=== PATIENT | male | born 1965 | race Caucasian/White ===

== ENCOUNTER 2019-01-07 19:41 | Emergency (ER) | payer BC, MEDICAID ==
--- NOTE | 2019-01-07 20:07 | ER Document Report ---
ED Medical Screen (RME) - General Stated Complaint: SWOLLEN HANDS Time Seen by Provider: 01/07/19 20:04 Primary Care Provider: BETTINA NARVAEZ [Primary Care Provider] - Follow up as needed Mode of Arrival: Ambulatory Information source: Patient Notes: This 53-year-old male presents to the emergency department irritation to his hands. Reports they started using a new cleanser at work. 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 Denies diabetes. I have greeted and performed a rapid initial assessment of this patient. A comprehensive ED assessment and evaluation of the patient, analysis of test results and completion of the medical decision making process will be conducted by additional ED providers. Dictation of this chart was performed using voice recognition software; therefore, there may be some unintended grammatical errors. Physical Exam - Vital signs Vitals: Temp Pulse Resp BP Pulse Ox 97.9 F 79 18 174/95 H 100 01/07/19 19:45 01/07/19 19:45 01/07/19 19:45 01/07/19 19:45 01/07/19 19:45 Course - Vital Signs Vital signs: Temp Pulse Resp BP Pulse Ox 97.9 F 79 18 174/95 H 100 01/07/19 19:45 01/07/19 19:45 01/07/19 19:45 01/07/19 19:45 01/07/19 19:45 Doctor's Discharge - Discharge Referrals: BETTINA NARVAEZ [Primary Care Provider] - Follow up as needed
[2019-01-07] MEDS ORDERED: FAMOTIDINE 20 MG TABLET PO ONE (21:34)
[2019-01-07] MEDS ORDERED: DIPHENHYDRAMINE HCL 50 MG CAPSULE PO ONE (21:34)
[2019-01-07] MEDS ORDERED: PREDNISONE 20 MG TABLET PO ONE (21:34)
--- NOTE | 2019-01-07 21:35 | ER Document Report ---
ED Skin Rash/Insect Bite/Abscs - General Chief Complaint: Skin Sore(s) Stated Complaint: SWOLLEN HANDS Time Seen by Provider: 01/07/19 20:04 Primary Care Provider: BETTINA NARVAEZ [BETTINA NOLAN MD] - Follow up as needed Mode of Arrival: Ambulatory TRAVEL OUTSIDE OF THE [place] IN LAST 30 DAYS: No - HPI Notes: This is a 53-year-old gentleman who presents today with a complaint of swelling, soft, itching of his hands. 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 He also notes that they recently started using new chemicals at work and he thinks that was the cause of his symptoms. He states that he first noticed a sore sinus right hand about a week ago and now he has sores on his left hand to. He describes them as itching. He denies any fever or chills. He denies any trauma. Denies any other pulmonary symptoms. There are no obvious aggravating or relieving factors. Past Medical History - General Information source: Patient - Social History Smoking Status: Current Every Day Smoker Chew tobacco use (# tins/day): No Frequency of alcohol use: None Drug Abuse: None Family History: Reviewed & Not Pertinent Patient has suicidal ideation: No Patient has homicidal ideation: No Review of Systems - Review of Systems Cardiovascular: denies: Chest pain Gastrointestinal: denies: Abdomen distended, Abdominal pain Genitourinary: denies: Burning Skin: Lesions, Rash Neurological/Psychological: denies: Headaches -: Yes All other systems reviewed and negative Physical Exam - Vital signs Vitals: Temp Pulse Resp BP Pulse Ox 97.9 F 79 18 174/95 H 100 01/07/19 19:45 01/07/19 19:45 01/07/19 19:45 01/07/19 19:45 01/07/19 19:45 - General General appearance: Appears well, Alert - Respiratory Respiratory status: No respiratory distress Chest status: Nontender Breath sounds: Normal Chest palpation: Normal - Cardiovascular Rhythm: Regular Heart sounds: Normal auscultation Murmur: No - Extremities General upper extremity: Nontender, Normal color, Normal ROM, Normal temperature General lower extremity: Normal inspection, Nontender, Normal color, Normal ROM, Normal temperature, Normal weight bearing. No: Dayanara's sign Hand: Other - Patient has multiple lesions on the fingers of both hands. They are macular, blanching, with some skin eruption consistent with sores. There are no obvious blisters that I can see. No warmth or erythema to suggest infectious etiology. Full range of motion of both hands. There is some slight swelling. - Skin Skin Temperature: Warm Skin Moisture: Dry Skin Color: Normal Skin irregularity: Rash - Rash, sores, as described in the hand exam. Course - Re-evaluation Re-evalutation: 01/07/19 21:34 Clinical picture is consistent with allergic contact dermatitis, likely some skin irritation and even chemical meraz from the chemicals that he using at work. There is no evidence of infection. Given the fact the patient states it is itching, I will treat with antihistamines and some prednisone. 01/07/19 22:19 Patient reevaluated. Patient is doing well. He is stable for discharge. - Vital Signs Vital signs: Temp Pulse Resp BP Pulse Ox 97.9 F 79 18 174/95 H 100 01/07/19 19:45 01/07/19 19:45 01/07/19 19:45 01/07/19 19:45 01/07/19 19:45 Discharge - Discharge Clinical Impression: Allergic contact dermatitis due to chemical Condition: Good Disposition: HOME, SELF-CARE Instructions: Contact Dermatitis ([facility]) Prescriptions: Diphenhydramine HCl [Benadryl] 25 mg PO Q6 PRN #20 capsule PRN Reason: Itching Prednisone [Deltasone 20 mg Tablet] 3 tab PO DAILY 5 Days #15 tablet Famotidine [Pepcid 20 mg Tablet] 20 mg PO BID #10 tablet Referrals: [facility] [NO LOCAL MD] - Follow up as needed [facility] [NO LOCAL MD] - Follow up in 3-5 days
[2019-01-07 23:01] VITALS: BP 160/95
== END 2019-01-07 22:57 | disposition home or self-care (01) ==
LOC: ER 19:41
DX: L23.5 Allergic contact dermatitis due to other chemical products (principal); Y99.0 Civilian activity done for income or pay; R22.33 Localized swelling, mass and lump, upper limb, bilateral; F17.200 Nicotine dependence, unspecified, uncomplicated
CPT/HCPCS: 99283; J3490 ×2; J7512